=== PATIENT | male | born 1975 | race Caucasian/White ===

== ENCOUNTER 2020-05-11 21:26 | Emergency (ER) | payer BC ==
[~2020-05-11 21:26] MED LIST: NAPROSYN500 MG PO
[2020-05-11 21:49] LABS: HEMOGLOBIN 15.6 gm/dl (14.0-17.5); RED BLOOD COUNT 4.92 M/UL (4.20-5.50); WHITE BLOOD COUNT 7.6 K/UL (4.5-11.0)
[2020-05-11 22:05] LABS: BUN/CREATININE RATIO 8 (0-10)
[2020-05-12] MEDS ORDERED: COLACE 100MG C100 MG PO (06:06)
[2020-05-12] MEDS ORDERED: BENTYL 20MG TAB20 MG PO (06:06)
[2020-05-12] MEDS ORDERED: ZOFRAN 4 MG TAB4 MG PO (06:06)
[2020-05-12] MEDS ORDERED: IBUPROFEN800 MG PO (06:06)
== END 2020-05-12 06:15 | disposition home or self-care (01) ==
LOC: ER1 21:26
PROVIDERS: Emergency Medicine
DX: R10.31 Right lower quadrant pain (principal); F17.290 Nicotine dependence, other tobacco product, uncomplicated
CPT/HCPCS: 36415; 80053; 81001; 82150; 83690; 85025; 99284; Q9967

== ENCOUNTER 2020-08-31 22:17 | Emergency (ER) | payer OTHER ==
[~2020-08-31 22:17] MED LIST changes: +BENTYL 20MG TAB20 MG PO; +COLACE 100MG C100 MG PO; +IBUPROFEN800 MG PO; +ZOFRAN 4 MG TAB4 MG PO
[2020-09-01 01:07] LABS: HEMOGLOBIN 14.7 gm/dl (14.0-17.5); RED BLOOD COUNT 4.68 M/UL (4.20-5.50); WHITE BLOOD COUNT 8.8 K/UL (4.5-11.0)
[2020-09-01 01:17] LABS: BUN/CREATININE RATIO 7 (0-10)
[2020-09-01] MEDS ORDERED: LIBRIUM CAP 2525 MG PO (02:21)
== END 2020-09-01 02:29 | disposition home or self-care (01) ==
LOC: ER1 22:17
PROVIDERS: Student in an Organized Health Care Education/Training Program
DX: F10.10 Alcohol abuse, uncomplicated (principal); Y90.9 Presence of alcohol in blood, level not specified; F17.210 Nicotine dependence, cigarettes, uncomplicated
CPT/HCPCS: 80053; 85025; 99284

== ENCOUNTER 2021-04-02 21:49 | Emergency (ER) | payer SELFPAY ==
[~2021-04-02 21:49] MED LIST changes: +LIBRIUM CAP 2525 MG PO
[2021-04-02] MEDS ORDERED: INDOMETHACIN50 MG PO (23:49)
[2021-04-02] MEDS ORDERED: CEPHALEXIN500 M1 PO (23:49)
== END 2021-04-03 00:11 | disposition home or self-care (01) ==
LOC: ER1 21:49
DX: S93.601A Unspecified sprain of right foot, initial encounter (principal); S93.401A Sprain of unspecified ligament of right ankle, initial encounter; M79.671 Pain in right foot; X50.1XXA Overexertion from prolonged static or awkward postures, initial encounter
CPT/HCPCS: 73600; 73620; 99283

== ENCOUNTER 2021-12-14 10:23 | Emergency (ER) | payer SELFPAY ==
[~2021-12-14 10:23] MED LIST changes: +CEPHALEXIN500 M1 PO; +INDOMETHACIN50 MG PO
[2021-12-14 12:29] LABS: HEMOGLOBIN 15.6 gm/dl (14.0-17.5); RED BLOOD COUNT 5.14 M/UL (4.20-5.50); WHITE BLOOD COUNT 16.2 K/UL (4.5-11.0)
[2021-12-14 13:51] LABS: BUN/CREATININE RATIO 15 (0-10)
== END 2021-12-14 13:50 | disposition home or self-care (01) ==
LOC: ER1 10:23
PROVIDERS: Physician Assistant
DX: S02.602A Fracture of unspecified part of body of left mandible, initial encounter for closed fracture (principal); S02.601A Fracture of unspecified part of body of right mandible, initial encounter for closed fracture; S02.5XXA Fracture of tooth (traumatic), initial encounter for closed fracture; Z88.1 Allergy status to other antibiotic agents; R40.2410 Glasgow coma scale score 13-15, unspecified time; Y04.0XXA Assault by unarmed brawl or fight, initial encounter; Z20.822 Contact with and (suspected) exposure to COVID-19
CPT/HCPCS: 70450; 70486; 80053; 85025; 96374; 96375; 96376; 99284; J0690; J2270; J2405; U0002